=== PATIENT | female | born 1980 | race Caucasian/White ===

== ENCOUNTER 2017-12-07 00:50 | Inpatient (IN) | payer MEDICAID ==
[2017-12-07] MEDS ORDERED: OXYTOCIN 30 UNITS/LR 500 ML IV (02:00)
[2017-12-07] MEDS ORDERED: METHYLERGONOVINE 0.2 MG INJ IM (02:00)
[2017-12-07] MEDS ORDERED: MISOPROSTOL 200 MCG TAB PR (02:00)
[2017-12-07] MEDS ORDERED: CARBOPROST 250 MCG INJ IM (02:00)
[2017-12-07] MEDS: CEFAZOLIN 2 GM/50 ML (PMX) 50 ML IVPB (02:00)
[2017-12-07] MEDS ORDERED: LACTATED RINGER'S 1,000 ML IV (02:02)
[2017-12-07 02:21] LABS: ADD MAN DIFF? NO
[2017-12-07] MEDS: LACTATED RINGER'S 1,000 ML IV ×4 (02:22→19:02)
[2017-12-07 02:23] LABS: BASOPHILS % 0.4 % (0.0-2.0); EOSINOPHILS # 0.1 10^3/ul (0.0-0.5); EOSINOPHILS % 1.6 % (0.0-7.0); HEMATOCRIT 37.9 % (37.0-47.0); HEMOGLOBIN 13.5 g/dl (12.0-16.0); LYMPHOCYTES # 2.1 10^3/ul (0.8-2.9); LYMPHOCYTES % 29.3 % (15.0-51.0); MEAN CORPUSCULAR HEMOGLOBIN 32.5 pg (29.0-33.0); MEAN CORPUSCULAR HGB CONC 35.6 g/dl (32.0-37.0); MEAN CORPUSCULAR VOLUME 91.3 fl (82.0-101.0); MEAN PLATELET VOLUME 11.3 fl (7.4-10.4); MONOCYTE # 0.4 10^3/ul (0.3-0.9); MONOCYTES % 5.8 % (0.0-11.0); NEUTROPHIL # 4.4 10^3/ul (1.6-7.5); NEUTROPHILS % 62.3 % (39.0-77.0); PLATELET COUNT 166 10^3/UL (140-415); RED BLOOD COUNT 4.15 10^6/ul (4.20-5.40); RED CELL DISTRIBUTION WIDTH 12.6 % (11.5-14.5)
[2017-12-07 02:45] LABS: GLUCOSE 137 mg/dl (70-220)
[2017-12-07 02:45] LABS: INR 0.96; PROTIME 12.9 Sec (11.9-14.9)
[2017-12-07 02:46] LABS: PARTIAL THROMBOPLASTIN TIME 28.1 Sec (25.0-35.0)
[2017-12-07 03:13] LABS: ADD UMIC YES; UR ASCORBIC ACID NEGATIVE (NEGATIVE); UR BACTERIA FEW /HPF (NONE SEEN); UR BILIRUBIN (Dip) NEGATIVE (NEGATIVE); UR BLOOD (Dip) NEGATIVE (NEGATIVE); UR CLARITY CLEAR (CLEAR); UR COLOR STRAW (YELLOW); UR GLUCOSE (Dip) NEGATIVE (NEGATIVE); UR KETONES (Dip) NEGATIVE (NEGATIVE); UR LEUKOCYTE ESTERASE (Dip) 2+ Leu/ul (NEGATIVE); UR NITRITE (Dip) NEGATIVE (NEGATIVE); UR RBC 1 /HPF (0-5); UR TOTAL PROTEIN (Dip) NEGATIVE (NEGATIVE); UR UROBILINOGEN (Dip) NEGATIVE (NEGATIVE); UR WBC 1 /HPF (0-5)
[2017-12-07] MEDS: TERBUTALINE 1 MG/ML INJ SC (04:21)
[2017-12-07 04:22] LABS: HEPATITIS B SURFACE ANTIGEN NEGATIVE (NEGATIVE)
[2017-12-07 22:20] LABS: RAPID PLASMA REAGIN NONREACTIVE (NR)
[2017-12-08] MEDS: LACTATED RINGER'S 1,000 ML IV ×3 (03:09→22:14)
[2017-12-08] MEDS: AMPICILLIN 2 GM/NS (PMX) 100 ML IV (10:29)
[2017-12-08] MEDS: NIFEdipine 10 MG CAP PO ×3 (11:39→23:35)
[2017-12-08] MEDS: AMPICILLIN 1 GM/NS (PMX) 50 ML IV ×3 (13:30→21:30)
[2017-12-08] MEDS: ACETAMINOPHEN 325 MG TAB PO (20:05)
[2017-12-08 20:09] LABS: ADD MAN DIFF? NO
[2017-12-08 20:11] LABS: BASOPHILS % 0.3 % (0.0-2.0); EOSINOPHILS # 0.1 10^3/ul (0.0-0.5); EOSINOPHILS % 1.1 % (0.0-7.0); HEMATOCRIT 38.2 % (37.0-47.0); HEMOGLOBIN 13.2 g/dl (12.0-16.0); IMMATURE GRANS #M 0.04 10^3/ul; IMMATURE GRANS % (M) 0.5 %; LYMPHOCYTES % 27.6 % (15.0-51.0); MEAN CORPUSCULAR HEMOGLOBIN 31.6 pg (29.0-33.0); MEAN CORPUSCULAR HGB CONC 34.6 g/dl (32.0-37.0); MEAN CORPUSCULAR VOLUME 91.4 fl (82.0-101.0); MEAN PLATELET VOLUME 11.5 fl (7.4-10.4); MONOCYTE # 0.4 10^3/ul (0.3-0.9); MONOCYTES % 5.2 % (0.0-11.0); NEUTROPHIL # 4.8 10^3/ul (1.6-7.5); NEUTROPHILS % 65.3 % (39.0-77.0); PLATELET COUNT 174 10^3/UL (140-415); RED BLOOD COUNT 4.18 10^6/ul (4.20-5.40); RED CELL DISTRIBUTION WIDTH 13.1 % (11.5-14.5)
[2017-12-08 20:11] LABS: WHITE BLOOD COUNT 7.4 10^3/ul (4.8-10.8)
[2017-12-08 20:31] LABS: INR 0.97
[2017-12-08 20:32] LABS: PARTIAL THROMBOPLASTIN TIME 28.6 Sec (25.0-35.0)
[2017-12-08 20:33] LABS: ALANINE AMINOTRANSFERASE 19 IU/L (13-69); ALBUMIN 3.2 g/dl (3.3-4.9); ALKALINE PHOSPHATASE 115 IU/L (42-121); ANION GAP 15 (8-16); ASPARTATE AMINO TRANSFERASE 16 IU/L (15-46); BILIRUBIN,INDIRECT 0.2 mg/dl (0-1.1); BILIRUBIN,TOTAL 0.2 mg/dl (0.2-1.3); BLOOD UREA NITROGEN 11 mg/dl (7-20); CALCIUM 9.3 mg/dl (8.4-10.2); CARBON DIOXIDE 18 mmol/L (21-31); CHLORIDE 109 mmol/L (97-110); CREATININE 0.49 mg/dl (0.44-1.00); GLUCOSE 113 mg/dl (70-220); POTASSIUM 3.8 mmol/L (3.5-5.1); SODIUM 138 mmol/L (135-144); TOTAL PROTEIN 6.1 g/dl (6.1-8.1)
[2017-12-08] MEDS: ACCU-CHEK XX (21:26)
[2017-12-08] MEDS: DIPHENHYDRAMINE 50 MG CAP PO (22:14)
[2017-12-08 22:57] LABS: ADD UMIC YES; UR ASCORBIC ACID NEGATIVE (NEGATIVE); UR BACTERIA FEW /HPF (NONE SEEN); UR BILIRUBIN (Dip) NEGATIVE (NEGATIVE); UR BLOOD (Dip) NEGATIVE (NEGATIVE); UR CLARITY CLEAR (CLEAR); UR COLOR YELLOW (YELLOW); UR GLUCOSE (Dip) NEGATIVE (NEGATIVE); UR KETONES (Dip) 1+ mg/dL (NEGATIVE); UR LEUKOCYTE ESTERASE (Dip) TRACE Leu/ul (NEGATIVE); UR NITRITE (Dip) NEGATIVE (NEGATIVE); UR RBC 1 /HPF (0-5); UR SPECIFIC GRAVITY (Dip) 1.013 (1.003-1.030); UR SQUAMOUS EPITHELIAL CELL FEW /HPF (FEW); UR TOTAL PROTEIN (Dip) NEGATIVE (NEGATIVE); UR UROBILINOGEN (Dip) 1+ mg/dL (NEGATIVE); UR WBC 0 /HPF (0-5)
[2017-12-09] MEDS: AMPICILLIN 1 GM/NS (PMX) 50 ML IV ×2 (01:30→05:30)
[2017-12-09] MEDS: ACETAMINOPHEN 325 MG TAB PO (01:55)
[2017-12-09] MEDS: LACTATED RINGER'S 1,000 ML IV ×4 (01:58→23:08)
[2017-12-09] MEDS: NIFEdipine 10 MG CAP PO ×3 (05:51→18:21)
[2017-12-09] MEDS: ACCU-CHEK XX ×4 (08:00→20:40)
[2017-12-09 20:10] LABS: COLLECTION PERIOD 24 hrs
[2017-12-09 20:48] LABS: VOLUME 2950 mls
[2017-12-09 20:49] LABS: COLLECTION PERIOD 24 hrs; VOLUME 2950 ml/24hrs
[2017-12-09 20:50] LABS: CREATININE CLEARANCE 151.2 mls/min (84.0-162.0); CREATININE,URINE RANDOM 36.16 mg/dl (20-320); SCRET 0.49 mg/dl (0.44-1.00)
[2017-12-10] MEDS: NIFEdipine 10 MG CAP PO ×2 (00:17→05:40)
[2017-12-10] MEDS: ACCU-CHEK XX ×3 (06:00→21:05)
[2017-12-10] MEDS: LACTATED RINGER'S 1,000 ML IV ×2 (06:42→20:51)
[2017-12-10] MEDS ORDERED: OXYTOCIN 30 UNITS/LR 500 ML BAG IV (07:00)
[2017-12-10] MEDS: AMPICILLIN 2 GM/NS (PMX) 100 ML IV (10:39)
[2017-12-10] MEDS ORDERED: BUPIVACAINE 0.75%/DEXT (SPINAL) 2 ML INJ (14:29)
[2017-12-10] MEDS ORDERED: morphine SULFATE/PF (10 MG/10 ML) INJ (14:29)
[2017-12-10] MEDS ORDERED: HYDROmorphONE 1 MG/5 ML IV SYRINGE IV ×3 (14:30)
[2017-12-10] MEDS ORDERED: ONDANSETRON 4 MG INJ IV ×2 (14:30)
[2017-12-10] MEDS ORDERED: NALOXONE (0.4 MG/ML) INJ IV (14:30)
[2017-12-10] MEDS ORDERED: FENTAnyl 50 MCG/ML VIAL IV ×2 (14:30)
[2017-12-10] MEDS ORDERED: KETOROLAC 30 MG INJ IV (14:30)
[2017-12-10] MEDS ORDERED: AMPICILLIN 1 GM/NS (PMX) 50 ML IV (14:30)
[2017-12-10] MEDS ORDERED: HYDROmorphONE 0.5 MG/0.5 ML SYG IV ×2 (14:30)
[2017-12-10] MEDS ORDERED: METOCLOPRAMIDE 10 MG INJ IV (14:30)
[2017-12-10] MEDS ORDERED: DIPHENHYDRAMINE 50 MG INJ IV ×2 (14:30)
[2017-12-10] MEDS ORDERED: PHENYLephrine (100 MCG/ML) 5ML SYG (14:39)
[2017-12-10] MEDS ORDERED: FENTAnyl 50 MCG/ML VIAL (15:10)
[2017-12-10] MEDS: OXYTOCIN 30 UNITS/LR 500 ML IV (16:00)
[2017-12-10] MEDS: CEFAZOLIN 2 GM/50 ML (PMX) 50 ML IVPB (18:09)
[2017-12-10] MEDS ORDERED: NA PHOSPHATE/BIPHOS 133 ML ENEMA PR (18:30)
[2017-12-10] MEDS ORDERED: OXYTOCIN 30 UNITS/LR 500 ML IV (18:30)
[2017-12-10] MEDS ORDERED: METHYLERGONOVINE 0.2 MG INJ IM (18:30)
[2017-12-10] MEDS ORDERED: MISOPROSTOL 200 MCG TAB PR (18:30)
[2017-12-10] MEDS ORDERED: LANOLIN 7 GM TUBE TOP (18:30)
[2017-12-10] MEDS ORDERED: CARBOPROST 250 MCG INJ IM (18:30)
[2017-12-10] MEDS: SENNA/DOCUSATE NA (8.6MG/50MG) TAB PO (21:00)
[2017-12-10] MEDS: IBUPROFEN 800 MG TAB PO (22:00)
[2017-12-10] MEDS: CEFAZOLIN 2 GM/50 ML (PMX) 50 ML IV (22:23)
[2017-12-11] MEDS: LACTATED RINGER'S 1,000 ML IV ×3 (05:01→13:32)
[2017-12-11] MEDS: CEFAZOLIN 2 GM/50 ML (PMX) 50 ML IV ×2 (05:43→14:10)
[2017-12-11] MEDS: IBUPROFEN 800 MG TAB PO ×3 (06:00→21:50)
[2017-12-11] MEDS: CLINDAMYCIN 300 MG CAP PO ×5 (06:03→23:39)
[2017-12-11] MEDS: KETOROLAC 30 MG INJ IV ×2 (06:15→13:33)
[2017-12-11] MEDS: ACCU-CHEK XX ×4 (07:30→20:05)
[2017-12-11 08:08] LABS: ADD MAN DIFF? NO
[2017-12-11 08:12] LABS: BASOPHILS % 0.2 % (0.0-2.0); EOSINOPHILS % 0.2 % (0.0-7.0); HEMATOCRIT 29.4 % (37.0-47.0); HEMOGLOBIN 10.3 g/dl (12.0-16.0); IMMATURE GRANS #M 0.03 10^3/ul; IMMATURE GRANS % (M) 0.3 %; LYMPHOCYTES # 1.4 10^3/ul (0.8-2.9); LYMPHOCYTES % 15.5 % (15.0-51.0); MEAN CORPUSCULAR HEMOGLOBIN 32.4 pg (29.0-33.0); MEAN CORPUSCULAR VOLUME 92.5 fl (82.0-101.0); MEAN PLATELET VOLUME 11.9 fl (7.4-10.4); MONOCYTE # 0.5 10^3/ul (0.3-0.9); NEUTROPHIL # 7.3 10^3/ul (1.6-7.5); NEUTROPHILS % 78.8 % (39.0-77.0); PLATELET COUNT 137 10^3/UL (140-415); RED BLOOD COUNT 3.18 10^6/ul (4.20-5.40)
[2017-12-11 08:12] LABS: WHITE BLOOD COUNT 9.2 10^3/ul (4.8-10.8)
[2017-12-11] MEDS: SENNA/DOCUSATE NA (8.6MG/50MG) TAB PO ×2 (10:08→21:00)
[2017-12-11] MEDS: BISACODYL 10 MG SUPP PR (15:11)
[2017-12-11] MEDS: OXYCODONE/ACETAMINOPHEN (5/325) TAB PO ×2 (18:18→23:39)
[2017-12-12] MEDS: LACTATED RINGER'S 1,000 ML IV (02:02)
[2017-12-12] MEDS: IBUPROFEN 800 MG TAB PO ×3 (06:33→22:00)
[2017-12-12] MEDS: CLINDAMYCIN 300 MG CAP PO ×3 (06:33→17:55)
[2017-12-12] MEDS: ACCU-CHEK XX ×4 (07:53→20:56)
[2017-12-12] MEDS: SENNA/DOCUSATE NA (8.6MG/50MG) TAB PO ×2 (09:18→21:00)
[2017-12-12] MEDS: OXYCODONE/ACETAMINOPHEN (5/325) TAB PO (09:19)
[2017-12-12] MEDS: HYDROCODONE/APAP (5/325) TAB PO (19:54)
[2017-12-13] MEDS: IBUPROFEN 800 MG TAB PO (03:50)
[2017-12-13] MEDS: CLINDAMYCIN 300 MG CAP PO ×3 (06:09→11:58)
[2017-12-13] MEDS: ACCU-CHEK XX (07:30)
[2017-12-13] MEDS: OXYCODONE/ACETAMINOPHEN (5/325) TAB PO ×2 (08:01→11:59)
[2017-12-13] MEDS: SENNA/DOCUSATE NA (8.6MG/50MG) TAB PO (09:41)
[2017-12-13] MEDS: MEASLES,MUMPS,RUBELLA VACCINE INJ SC* (09:41)
[2017-12-13] MEDS: DIPHTH/TET/ACEL PERTUSS (ADULT) 0.5 ML VIAL IM* (12:09)
== END 2017-12-13 13:10 | disposition home or self-care (01) | DRG 765 ==
LOC: OBT 00:50 → L-D 12-08 10:56 → OBT 01:45 → L-D 12-10 16:06 → PP1 12-10 18:59
PROC: 10D00Z1 Extraction of Products of Conception, Low, Open Approach (ICD-10-PCS; principal; 2017-12-10 14:15)
PROC: 3E033VJ Introduction of Other Hormone into Peripheral Vein, Percutaneous Approach (ICD-10-PCS; 2017-12-10 14:15)
DX: O34.211 Maternal care for low transverse scar from previous cesarean delivery (principal); O24.12 Pre-existing type 2 diabetes mellitus, in childbirth; E11.9 Type 2 diabetes mellitus without complications; O13.4 Gestational [pregnancy-induced] hypertension without significant proteinuria, complicating childbirth; Z3A.37 37 weeks gestation of pregnancy; Z37.0 Single live birth
CPT/HCPCS: 80053; 81001; 82575; 82947; 82962; 84156; 84560; 85025; 85384; 85610; 85730; 86592; 86850; 86870; 86900; 86901; 87086; 87340; 90715; 99464